=== PATIENT | female | born 2000 | race Caucasian/White ===

== ENCOUNTER 2020-02-04 15:55 | Outpatient (REF) | payer OTHER, SELFPAY ==
--- NOTE | 2020-02-04 09:00 | PAPFT_PTH ---
PATIENT: Lucrecia Arreola [id number] AGE/SX: 19/F ROOM: RE02/04/[address]: Portia Schuler : 2000 BED: DIS: 02/04/2020 SPEC #: [id number] RECD: 02/05/20 12:49 STATUS: PEDRO RETristen #: [id number] AGUSTÍN: 02/04/20 09:[address]: Portia Schuler DEPT: [facility] Cytology RECD BY: Keyla Cortez ENTERED: 02/05/20 12:49 SP TYPE: PAPFT OTHR DR: Roula Pappas MD Tissues: 1 - CX/ENDOCX FOR PAP SMEARS Procedures: PAP THIN PREP/UVM Screening Comments: [id number] (CHLAMYDIA/GC)
[2020-02-06 15:23] LABS: Chlamydia Result Negative (Negative); GC Result Negative (Negative)
== END 2020-02-04 16:15 ==
LOC: NCHCN 15:55
PROVIDERS: PCP Pediatrics; Visit Provider Family Medicine
DX: Z11.3 Encounter for screening for infections with a predominantly sexual mode of transmission (principal); Z12.4 Encounter for screening for malignant neoplasm of cervix
CPT/HCPCS: 87491; 87591; 88142

== ENCOUNTER 2020-05-25 03:34 | Emergency (ER) | payer OTHER, SELFPAY ==
--- NOTE | 2020-05-25 03:35 | W.ED.GENAD ---
Discharge Plan Disposition Patient Disposition: HOME Condition: Good Discharge Details Clinical Impression: Closed fracture of great toe of left foot, Closed fracture of second toe of left foot Primary Care Provider: Roula Pappas V ED Provider: Daryl Brewer Home Meds and New Rx's Prescriptions: No Action No Known Home Meds RF: 0 Discharge Instructions Additional Instructions: There are fractures of the first and second toe. Both are nondisplaced and should heal without difficulty. However, because the fracture to the big toe is intra-articular will place you in a short walking boot and refer to orthopedics to be sure injury healing appropriately. It will be important to wear the boot at all times except when showering or in bed sleeping. Ibuprofen as needed for pain. Ice and elevate over the weekend. Return to ED if problems. Referrals: Olman Bustamante MD [ [facility] STAFF PHYSICIAN] - Medical Decision Making X-ray ordered to rule out fracture. Fracture noted of the great toe with the distal proximal phalanx which is intra-articular. Probable fracture of the proximal in of the middle phalanx intra-articular of the second toe. No displacement of either fracture. Because of the intra-articular fracture involving the big toe will place in a short walking boot and refer to Ortho. Patient instructed to wear the boot at all times except when showering or in bed. Ice and elevate over the weekend. Motrin as needed for pain. Return to ED if problems. HPI General Mode of arrival: ambulatory. Date/Time Provider Initiated Documentation: 05/25/20 03:35. Limitations to Documentation: no limitations. Information obtained by: patient and RN notes reviewed. HPI Narrative: Patient presents to ED with left foot injury. Patient twisted her foot playing catch last night. She iced it before going to bed. Foot is more painful and swollen now. Denies any ankle pain. Denies other injury. Did not take anything for pain. Denies numbness or weakness. Related Data Home Medications Medication Instructions Recorded Confirmed Unknown [No Known Home Meds] 12/23/17 05/25/20 Allergies Allergy/AdvReac Type Severity Reaction Status Date / Time No Known Allergies Allergy Unverified 05/25/20 03:44 Review of Systems Constitutional Constitutional: Denies fever(s) and Denies weakness Cardiovascular Cardiovascular: Denies dyspnea Respiratory Respiratory: Denies cough and Denies dyspnea Musculoskeletal Musculoskeletal: Denies numbness Neurologic Neurologic: Denies numbness and Denies weakness [facility] Medical History Fracture of tibia Surgical History No significant past surgical history Social History Smoking risk assessment performed?: No Alcohol Intake: current Alcohol Intake frequency: a few times a month Drug use: Occasionally Substance use type: marijuana Do you feel safe at home: Yes Do you feel safe in your relationship?: Yes Exam Narrative Exam Narrative: Const: WDWN female in NAD. HEENT: NC/AT. Normal facial exam. Neck: Supple. Trachea midline. Lungs: Normal respiratory effort. Cor: RRR. Good distal pulses. Neuro: A+O x 3. Normal speech, mentation. Cranial nerves II - XII grossly intact. No gross motor or sensory deficit. Ext: No C/C/E. Slight swelling with tenderness over medial dorsal aspect of the left foot. Skin: Warm and dry without bruising.
[2020-05-25 03:36] VITALS: BP 133/81; PULSE 79; RESP 16; TEMP 36.7; O2SAT 99
--- NOTE | 2020-05-25 03:45 | DI.RAD_ITS ---
EXAM: XR FOOT LT COMPLETE CLINICAL HISTORY: injury. TECHNIQUE: 2D digital imaging was performed. COMPARISON: No exams were available for comparison FINDINGS: BONES: There is a minimally displaced comminuted intra-articular fracture of the head of the proximal phalanx of the great toe. There is also an oblique nondisplaced fracture at the lateral aspect of t he base of the distal phalanx of the great toe. There is a nondisplaced oblique fracture through the lateral aspect of the base of the middle phalanx of the left 2nd toe. No bony destructive lesion is seen. JOINTS: No dislocation present. SOFT TISSUE: There is soft tissue swelling of the 1st and 2nd toes. IMPRESSION: Fractures involving the 1st and 2nd toes as described above. DATA REPOSITORY: RADIATION DOSE DELIVERED:
--- NOTE | 2020-05-25 04:27 | DI.VRAD_ITS ---
PROCEDURE INFORMATION: Exam: XR Left Foot Exam date and time: 05/25/2020 3:48 AM Age: 19 years old Clinical indication: Foot; Left; Patient HX: Injury; Per PT: Focus of pain big toe TECHNIQUE: Imaging protocol: XR Left foot. Views: 3 or more views. COMPARISON: No relevant prior studies available. FINDINGS: Bones/joints: There is a minimally displaced intra-articular fracture through the distal and medial aspect of the great toe proximal phalanx. A linear lucency is seen through the lateral aspect of the great toe distal phalanx proximally which may be a nondisplaced fracture versus vascular channel. There is a nondisplaced intra-articular fracture through the lateral aspect of the 2nd digit middle phalanx proximally. No dislocation. Soft tissues: Soft tissue swelling around the 2nd and 1st digits. IMPRESSION: Fractures of the 1st and 2nd toes as described above. No dislocation. Dictated and Authenticated by: Kalli Horvath MD. Ordering:PRUDENCIO Brito MD
[2020-05-25 04:40] VITALS: BP 119/74; PULSE 70; RESP 16; O2SAT 100
[2020-05-25] MEDS: Ibuprofen 600 MG TAB PO (04:40)
== END 2020-05-25 04:45 | disposition home or self-care (01) ==
PROVIDERS: Emergency Provider Emergency Medicine; PCP Family Medicine
DX: S92.415A Nondisplaced fracture of proximal phalanx of left great toe, initial encounter for closed fracture (principal); S92.525A Nondisplaced fracture of middle phalanx of left lesser toe(s), initial encounter for closed fracture; X50.1XXA Overexertion from prolonged static or awkward postures, initial encounter
CPT/HCPCS: 28490; 28510; 73630

== ENCOUNTER 2021-06-05 19:00 | Outpatient (REF) | payer OTHER, SELFPAY ==
[2021-06-08 14:45] LABS: Chlamydia Result Negative (Negative); GC Result Negative (Negative)
== END 2021-06-05 19:01 | disposition home or self-care (01) ==
LOC: LBN 19:00
PROVIDERS: PCP Family Medicine; Visit Provider Advanced Practice Midwife
DX: B37.3 Candidiasis of vulva and vagina (principal); N94.19 Other specified dyspareunia; Z01.419 Encounter for gynecological examination (general) (routine) without abnormal findings
CPT/HCPCS: 87491; 87591; 87480; 87510; 87660

== ENCOUNTER 2022-04-09 15:34 | Outpatient (REF) | payer MEDICAID, SELFPAY ==
[2022-04-09 21:32] LABS: Anion Gap 9.6 mmol/L (3-11); BUN 16 mg/dL (7-18); CO2 28.4 mmol/L (21.0-32.0); CREATININE 0.8 mg/dL (0.55-1.02); Calcium 9.7 mg/dL (8.5-10.1); Chloride 105 mmol/L (98-107); Cholesterol 136 mg/dL (<200); Estimated GFR 106.11 (mL/min/1.73m2); Glucose 79 mg/dL (74-106); HDL Cholesterol 59 mg/dL (40-60); Potassium 4.6 mmol/L (3.5-5.1); Sodium 143 mmol/L (136-145)
[2022-04-09 21:52] LABS: Triglyceride < 25 mg/dL (<150)
[2022-04-09 22:15] LABS: LDL CHOLESTEROL 67 mg/dL (<100)
[2022-04-16 21:49] LABS: Testosterone, Total 39 ng/dL (8-60)
== END 2022-04-09 15:35 | disposition home or self-care (01) ==
LOC: NCHCN 15:34
PROVIDERS: PCP Family Medicine; Visit Provider Family Medicine
DX: Z13.228 Encounter for screening for other metabolic disorders (principal); Z13.220 Encounter for screening for lipoid disorders; R68.82 Decreased libido; M54.59 Other low back pain; Z00.00 Encounter for general adult medical examination without abnormal findings
CPT/HCPCS: 80048; 80061; 83721; 84403

== ENCOUNTER 2023-02-02 11:11 | Outpatient (REF) | payer MEDICAID, SELFPAY ==
--- NOTE | 2023-02-02 11:00 | PAPFT_PTH ---
PATIENT: Lucrecia Arreola LOC: [facility] U#:[id number] AGE/SX: 22/F ROOM: RE02/02/[address]: Kimberly Chang : 2000 BED: DIS: 02/02/2023 SPEC #: [id number] RECD: 02/02/23 13:12 STATUS: PEDRO REQ #: [id number] AGUSTÍN: 02/02/23 11:[address]: Kimberly Chang DEPT: [facility] Cytology RECD BY: Keyla Cortez ENTERED: 02/02/23 13:12 SP TYPE: PAPFT OTHR DR: Portia Schuler Tissues: 1 - CX/ENDOCX FOR PAP SMEARS Procedures: PAP THIN PREP/UVM Screening Comments: [id number]
== END 2023-02-02 11:12 | disposition home or self-care (01) ==
LOC: LBN 11:11
PROVIDERS: PCP Family Medicine; Visit Provider Advanced Practice Midwife
DX: Z12.4 Encounter for screening for malignant neoplasm of cervix (principal)
CPT/HCPCS: 88142

== ENCOUNTER 2023-03-04 00:12 | Emergency (ER) | payer MEDICAID, SELFPAY ==
[2023-03-04 00:16] VITALS: BP 141/64; PULSE 82; RESP 16; TEMP 36.9; O2SAT 97
--- NOTE | 2023-03-04 00:16 | W.ED.GENAD ---
HPI General Date/Time Provider Initiated Documentation: 03/04/23 00:14. HPI Narrative: 22-year-old female with no significant past medical history presents today for evaluation of dysuria. Patient states that at 6 PM she developed some mild burning sensation in her suprapubic and urinary region. She admits to mild frequency. She denies fever or chills. She denies flank pain. She denies vomiting or diarrhea. She is on her menstrual period, however she denies any other recent or atypical discharges. She denies any history of STDs. No other complaints at this time. No other modifying factors. Related Data Home Medications Medication Instructions Recorded Confirmed cholecalciferol (vitamin D3) 10 10 mcg PO DAILY 06/05/21 03/04/23 mcg (400 unit) capsule evening primrose oil 500 mg capsule 500 mg PO TID 06/05/21 03/04/23 magnesium 30 mg tablet 30 mg PO DAILY 06/05/21 03/04/23 clobetasol 0.05 % topical ointment 1 applic topical DAILY #45 grams 02/02/23 03/04/23 fluconazole 150 mg tablet 150 mg PO DAILY #1 tab 02/02/23 03/04/23 cephalexin 500 mg capsule 500 mg PO QID 5 days #20 caps 03/04/23 Previous Rx's Medication Instructions Recorded clobetasol 0.05 % topical ointment 1 applic topical DAILY #45 grams 02/02/23 fluconazole 150 mg tablet 150 mg PO DAILY #1 tab 02/02/23 cephalexin 500 mg capsule 500 mg PO QID 5 days #20 caps 03/04/23 Allergies Allergy/AdvReac Type Severity Reaction Status Date / Time No Known Allergies Allergy Verified 03/04/23 00:25 General WALTER: 4 Review of Systems All systems reviewed & are unremarkable except as noted in HPI and below Exam Narrative Exam Narrative: 1.Const: Well-nourished, Well-developed, appearing stated age 2.Eyes: PERRL, no conjunctival injection, and symmetrical lids. 3.ENT: Atraumatic external nose and ears. Moist MM. Neck: Symmetric, trachea midline, No thyromegaly. 4.CVS: +S1/S2, No murmurs or gallops. Peripheral pulses 2+ and equal in all extremities. Brisk capillary refill in all extremities. 5.RESP: Unlabored respiratory effort. Clear to auscultation bilaterally. No wheezes rales or rhonchi 6.GI: Soft, Nontender/Nondistended, No hepatosplenomegaly. No guarding or rebound. Minimal suprapubic achiness, no abdominal tenderness. No pain to McBurney's point, negative Levin sign. Negative Rovsing sign. No flank or CVA tenderness. 7.MSK: Normocephalic/Atraumatic, Extremities w/o deformity or ttp No cyanosis or clubbing, Normal movement of all extremities 8.Skin: Warm, Dry. No rashes or lesions. 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 Sensation grossly intact, no focal neurologic deficits. 10.Psych: (AAO) x3. Appropriate mood and affect Medical Decision Making 22-year-old female with no significant past medical history presents today for evaluation of dysuria. Patient states that at 6 PM she developed some mild burning sensation in her suprapubic and urinary region. She admits to mild frequency. She denies fever or chills. She denies flank pain. She denies vomiting or diarrhea. She is on her menstrual period, however she denies any other recent or atypical discharges. She denies any history of STDs. No other complaints at this time. No other modifying factors. No family history of kidney stones. Physical exam demonstrates well-appearing female, no guarding or rebound, no flank or CVA tenderness. No fever. Minimal suprapubic achiness. Vital signs notably stable. Symptoms at this time appear clinically inconsistent with a kidney stone, appendicitis, ovarian torsion, tubo-ovarian abscess. Symptoms appear most concerning with mild urinary tract infection. Inconsistent with pyelonephritis. Will get a UA, test, monitor closely and reassess. Patient's urinalysis is returned positive. She will be started on Keflex. She has no known allergies. She is not on control. Discussed red flags for which to return. I have extensively reviewed the treatment plan and discharge instructions with the patient. I have addressed all patient concerns at this time. The patient was made aware of what symptoms to monitor for that would warrant a return to the emergency department. Discussed the plan with the patient, they demonstrate verbal understanding and agreement with our assessment and plan at this time. The documentation in this chart was dictated using [employer] dictation software. Please excuse any dictation errors. Quality:SDOH Health Related Social Needs: No Data to Display PFSH All Active Problems (Updated 03/04/23 @ 00:16 by Tanner Price DO) Urinary tract infection (Acute) Molluscum contagiosum (Acute) Acne (Acute) Chronic vulvitis (Acute) Inflammatory disease of vagina and vulva (Acute) Dyspareunia in female (Acute) Vaginal juwan (Acute) Gynecologic exam normal (Acute) Closed fracture of great toe of left foot (Acute) Closed fracture of second toe of left foot (Acute) Medical History Routine medical exam (08/31/12) Normal weight (08/20/14) Vaccination not carried out because of caregiver refusal (08/31/12) UNIMMUNIZED Fracture of tibia Surgical History No significant past surgical history Social History Smoking/Tobacco Use Status: Former Tobacco Use Tobacco: How many years used: 2 Smoking risk assessment performed?: Yes Alcohol Intake: current Alcohol Intake frequency: a few times a month Drug use: Never Substance use type: does not use Do you feel safe at home: Yes Do you feel safe in your relationship?: Yes Discharge Plan Disposition Patient Disposition: Home Condition: Good Discharge Details Clinical Impression: Urinary tract infection Primary Care Provider: Annalisa Rodriguez ED Provider: Tanner Price Home Meds and New Rx's Prescriptions: New cephalexin 500 mg capsule 500 mg PO QID 5 Days Qty: 20 0RF Continued cholecalciferol (vitamin D3) 10 mcg (400 unit) capsule 10 mcg PO DAILY evening primrose oil 500 mg capsule 500 mg PO TID Rx Instructions: give with meal/snack magnesium 30 mg tablet 30 mg PO DAILY clobetasol 0.05 % ointment 1 applic topical DAILY Qty: 45 3RF fluconazole 150 mg tablet 150 mg PO DAILY Qty: 1 5RF Rx Instructions: take one tablet monthly Discharge Instructions Instructions: Urinary Tract Infection in Women (ED) Additional Instructions: At this time you do have evidence of urinary tract infection. Please take the antibiotics as directed. Please drink cranberry juice or cranberry concentrate to help while having this UTI. If you notice any worsening of your symptoms, or any new symptoms such as vomiting, diarrhea, fever, chills, shortness of breath, chest pain, numbness, weakness, or fainting , please return immediately to the emergency department for reevaluation. Please follow up with your primary care provider as soon as possible for reassessment and reevaluation. As always, it was a pleasure participating in your medical care today. Referrals: Annalisa Rodriguez [Primary Care Provider] -
[2023-03-04 00:26] VITALS: BP 141/64; PULSE 82; RESP 16; TEMP 36.9; O2SAT 97
[2023-03-04 00:27] LABS: Bilirubin Negative (Negative); Blood Large (Negative); Clarity Sl Cloudy (Clear); Glucose Negative (Negative); Ketones Negative (Negative); Leukocyte Esterase Large (Negative); Nitrite Negative (Negative); Specific Gravity 1.025 (1.005-1.025); Urobilinogen 0.2 mg/dL (Up to 0.2); pH 7.5 (5-8)
[2023-03-04 00:31] LABS: C & S Indicated? Yes; RBC >50 HPF (0-2); WBC >50 HPF (0-5)
[2023-03-04] MEDS: Cephalexin 500 MG CAP, 4 CAPS/BTL PO (00:38)
== END 2023-03-04 00:38 | disposition home or self-care (01) ==
PROVIDERS: Emergency Provider Student in an Organized Health Care Education/Training Program; PCP Family Medicine
DX: N39.0 Urinary tract infection, site not specified (principal); F17.210 Nicotine dependence, cigarettes, uncomplicated
CPT/HCPCS: 87077; 99283; 81003; 81015; 87086; 87186

== ENCOUNTER 2023-05-25 14:00 | Outpatient (REF) | payer MEDICAID, SELFPAY ==
--- NOTE | 2023-05-25 11:40 | PAPFT_PTH ---
PATIENT: Lucrecia Arreola LOC: [facility] U#:[id number] AGE/SX: 22/F ROOM: RE05/25/[address]: Annalisa Rodriguez : 2000 BED: DIS: 05/25/2023 SPEC #: [id number] RECD: 05/25/23 14:07 STATUS: PEDRO HOYT #: [id number] AGUSTÍN: 05/25/23 11:[address]: Annalisa Rodriguez DEPT: [facility] Cytology RECD BY: Keyla Cortez Tissues: 1 - CX/ENDOCX FOR PAP SMEARS Procedures: PAP THIN PREP/UVM Screening Comments: [id number]
== END 2023-05-25 14:01 | disposition home or self-care (01) ==
LOC: NCHCN 14:00
PROVIDERS: PCP Family Medicine; Visit Provider Family Medicine
DX: N89.8 Other specified noninflammatory disorders of vagina (principal)
CPT/HCPCS: 88142; 87480; 87510; 87660

== ENCOUNTER 2024-10-10 17:46 | Outpatient (REF) | payer MEDICAID, SELFPAY | END 2024-10-10 17:47 | disposition home or self-care (01) | LOC: LBN 17:46 | PROVIDERS: PCP Family Medicine; Visit Provider Physician Assistant | DX: N76.0 Acute vaginitis (principal); B96.89 Other specified bacterial agents as the cause of diseases classified elsewhere | CPT/HCPCS: 87480; 87510; 87660 ==

== ENCOUNTER 2024-12-29 13:11 | Outpatient (REF) | payer MEDICAID, SELFPAY ==
[2024-12-30 12:37] LABS: Bacterial Vaginosis (BV) Negative (Negative); Candida glabrata Negative (Negative); Candida species group Negative (Negative); Chlamydia Result Negative (Negative); GC Result Negative (Negative)
== END 2024-12-29 13:12 | disposition home or self-care (01) ==
LOC: LBN 13:11
PROVIDERS: PCP Family Medicine; Visit Provider Physician Assistant
DX: N89.8 Other specified noninflammatory disorders of vagina (principal)
CPT/HCPCS: 81513; 87481; 87491; 87591; 87661